=== PATIENT | female | born 1960 | race Caucasian/White ===

== ENCOUNTER → 2017-10-17 | Outpatient (CLI) | payer BC ==
--- NOTE | 2017-10-17 15:40 | RADIOLOGY IMAGING REPORT ---
[place] [facility] [place] NAME: Erinn Cutler : 1960 MR: [id number] V: [id number] EXAM DATE: ORDERING PHYSICIAN: COLE CHIU TECHNOLOGIST: Location: [facility] - [place] Patient: Erinn Cutler : 1960 Visit/Account:[id number] Date of Sevice: 10/17/2017 DEXA Scan Clinical history: Screening. Comparison: None available. LUMBAR SPINE: The bone mineral density (BMD) measured from L1-L4 correlates with a Z-score -1 and a T-score of -1.4 which is osteopenia as defined by the World Health Organization. The corresponding risk of fracture in the lumbar spine is to 3 times increased compared with a young adult reference population. HIP: Bone mineral density (BMD) measured in the Left total hip region correlates with a Z-score is 0.6 and a T-score of -0.9 which is Normal as defined by the World Health Organization. The corresponding ri sk of fracture in the hip is 1-2 times increased compared with a young adult reference population. T score left femoral neck -1.1 Bone mineral density (BMD) measured in the Femoral Neck region measures 0.884 g/cm2. Impression: 1. Lumbar spine: Normal. 2. Left Hip: Normal. 3. Femoral Neck: Bone Mineral Density is 0.884 g/cm2 The next DEXA scan of this patient should include the following sites: L1-L4 and the left hip. FRAX? WHO Fracture Risk Assessment Tool link: <http://www.shef.ac.uk/FRAX/tool.jsp?locationValue=9> PLEASE NOTE: 1) The World Health Organization defines low BMD as follows: T-score Normal > -1 Osteopenia < -1 and > -2.5 Osteoporosis < -2.5 without fractures Established osteoporosis < -2.5 with fractures 2) In general, you may wish to consider: Diagnosis Treatment Follow-up DEXA Normal BMD Prevention 2-3 years Osteopenia Prevention/therapy 1-2 years Osteoporosis Therapy Yearly 3) Fracture risk estimated from the T-score is more accurate for vertebral fractures (often spontane ous) than for hip fractures. Report Dictated By: Jessica Toscano MD at 10/17/2017 3:35 PM Report E-Signed By: Jessica Toscano MD at 10/17/2017 3:36 PM WSN:SHANNON
--- NOTE | 2017-10-18 08:20 | RADIOLOGY IMAGING REPORT ---
[place] [facility] [place] NAME: DESTIN BEAN : [id number] MR: [id number] V: [id number] EXAM DATE: [id number] ORDERING PHYSICIAN: COLE CHIU TECHNOLOGIST: Ada Rascon PROCEDURE:BILATERAL DIGITAL SCREENING MAMMOGRAM WITH CAD ASSISTED INTERPRETATION & 3D TOMOSYNTHESIS COMPARISON:Prior mammograms 03/20/10, 09/02/05, 11/05/02, 11/01/01. INDICATIONS:screening FINDINGS: A small to moderate amount of fibroglandular tissue is seen throughout the breasts. The parenchymal pattern has remained stable allowing for difference in mammographic technique & patient positioning. There is no evidence of malignant appearing mass, malignant appearing calcifications or other secondary sign of malignancy in either breast. DIAGNOSTIC CATEGORY 1--NEGATIVE. RECOMMENDATIONS: ROUTINE MAMMOGRAM AND CLINICAL EVALUATION. IMPRESSION: BIRADS 1: Negative. No significant abnormality is seen. Dictated by: Jessica Toscano M.D. on 10/17/2017 at 16:32 Transcribed by: CATHY on 10/18/2017 at 8:01 Approved by: Jessica Toscano M.D. on 10/18/2017 at 8:20 [facility]
== END ==
LOC: MAMO 02:06
PROVIDERS: ATTEND Nurse Practitioner Psychiatric/Mental Health
DX: Z13.820 Encounter for screening for osteoporosis (principal); Z12.31 Encounter for screening mammogram for malignant neoplasm of breast
CPT/HCPCS: 77063; 77067; 77080